=== PATIENT | male | born 1960 | race African-American/Black ===

== ENCOUNTER 2018-11-30 08:38 | Emergency (ER) | payer SELFPAY ==
--- NOTE | 2018-11-30 09:15 | EDM.PDOC ---
ED HPI GENERAL MEDICAL PROBLEM - General Chief Complaint: Upper Extremity Injury/Pain Stated Complaint: KNEE AND WRIST PAIN Time Seen by Provider: 11/30/18 09:08 Source of Information: Reports: Patient History Limitations: Reports: No Limitations - History of Present Illness INITIAL COMMENTS - FREE TEXT/NARRATIVE: History of present illness: []Patient's had 6 days of right wrist pain and left knee pain. He was diagnosed with osteoarthritis recently. 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 He wakes up in the middle the night with numbness to his small finger. Patient was recently diagnosed with arthritis and states that he works at night and by morning time he can barely walk up the stairs due to left knee pain Review of systems: As per history of present illness and below otherwise all systems reviewed and negative. Past medical history: As per history of present illness and as reviewed below otherwise noncontributory. Surgical history: As per history of present illness and as reviewed below otherwise noncontributory. Social history: No reported history of drug or alcohol abuse. Family history: As per history of present illness and as reviewed below otherwise noncontributory. Physical exam: General: Well developed, well nourished in NAD HEENT: Atraumatic, normocephalic, pupils reactive, negative for conjunctival pallor or scleral icterus, mucous membranes moist, throat clear, neck supple, nontender, trachea midline. Lungs: Clear to auscultation, breath sounds equal bilaterally, chest nontender. Heart: S1S2, regular, negative for clicks, rubs, or JVD. Abdomen: NABS, Soft, nondistended, nontender. Negative for masses or hepatosplenomegaly. Negative for costovertebral tenderness. Pelvis: Stable nontender. Genitourinary: Deferred. Rectal: Deferred. Extremities: Atraumatic, right wrist without any swelling or edema, full range of motion there is an ulnar protuberance of bone that is nontender and not limiting motion. negative for cords or calf pain. Neurovascular unremarkable. Neuro: Awake, alert, oriented. Cranial nerves II through XII unremarkable. Cerebellum unremarkable. Motor and sensory unremarkable throughout. Exam nonfocal. Skin:warm and dry Diagnostics: None Therapeutics: Cock-up splint ED Course: Stable Impression: Right wrist pain; left knee pain from osteoarthritis Prescriptions: Diclofenac Plan: Wear splint at night, follow-up with primary care. Definitive disposition and diagnosis as appropriate pending reevaluation and review of above. Right wrist Pain Score (Numeric/FACES): 5 Left knee Pain Score (Numeric/FACES): 7 - Related Data Allergies Allergy/AdvReac Type Severity Reaction Status Date / Time No Known Allergies Allergy Verified 12/11/14 15:32 Home Meds: Home Meds Diclofenac Sodium [Voltaren] 75 mg PO BIDMEALS PRN #20 tab.cr 11/30/18 [Rx] Past Medical History Musculoskeletal History: Reports: Osteoporosis - Past Surgical History Other GI Surgeries/Procedures: abscess on neck Social & Family History - Family History Family Medical History: Noncontributory - Tobacco Use Smoking Status *Q: Current Every Day Smoker Years of Tobacco use: 10 Packs/Tins Daily: 0.2 - Caffeine Use Caffeine Use: Reports: None - Recreational Drug Use Recreational Drug Use: No Review of Systems - Review of Systems Review Of Systems: ROS reveals no pertinent complaints other than HPI. ED EXAM, GENERAL - Physical Exam Exam: See Below Course - Vital Signs Last Recorded V/S: Last Vital Signs Temp 96.9 F 11/30/18 08:52 Pulse 101 H 11/30/18 08:52 Resp 16 11/30/18 08:52 BP 132/88 11/30/18 08:52 Pulse Ox 97 11/30/18 08:52 - Orders/Labs/Meds Orders: Active Orders 24 hr Category Date Time Status Splinting [RC] ASDIRECTED Care 11/30/18 09:09 Ordered Departure - Departure Time of Disposition: 09:14 Disposition: Home, Self-Care 01 Condition: Good Clinical Impression: Pain in joint of right wrist Osteoarthritis Qualifiers: Osteoarthritis location: knee Osteoarthritis type: primary Laterality: left Qualified Code(s): M17.12 - Unilateral primary osteoarthritis, left knee - Discharge Information *PRESCRIPTION DRUG MONITORING PROGRAM REVIEWED*: No *COPY OF PRESCRIPTION DRUG MONITORING REPORT IN PATIENT MEENA: No Prescriptions: Diclofenac Sodium [Voltaren] 75 mg PO BIDMEALS PRN #20 tab.cr PRN Reason: Pain Referrals: PCP,Unknown [Primary Care Provider] - Additional Instructions: The following information is given to patients seen in the emergency department who are being discharged to home. This information is to outline your options for follow-up care. We provide all patients seen in our emergency department with a follow-up referral. The need for follow-up, as well as the timing and circumstances, are variable depending upon the specifics of your emergency department visit. If you don't have a primary care physician on staff, we will provide you with a referral. We always advise you to contact your personal physician following an emergency department visit to inform them of the circumstance of the visit and for follow-up with them and/or the need for any referrals to a consulting specialist. The emergency department will also refer you to a specialist when appropriate. This referral assures that you have the opportunity for follow-up care with a specialist. All of these measure are taken in an effort to provide you with optimal care, which includes your follow-up. Under all circumstances we always encourage you to contact your private physician who remains a resource for coordinating your care. When calling for follow-up care, please make the office aware that this follow-up is from your recent emergency room visit. If for any reason you are refused follow-up, please contact the [facility] Emergency Department at and asked to speak to the emergency department charge nurse. Take meds as directed, follow up with your primary care physician, return to ER if symptoms worsen or change. Take high-dose fish oil [id number] mg of omega 3 daily Wear wrist splint at night and while working [facility] [address] [place] [id number] - My Orders Last 24 Hours: My Active Orders 11/30/18 09:09 Splinting [RC] ASDIRECTED - Assessment/Plan Last 24 Hours: My Active Orders 11/30/18 09:09 Splinting [RC] ASDIRECTED
[2018-11-30 09:32] VITALS: BP 128/76
== END 2018-11-30 09:32 | disposition home or self-care (01) ==
LOC: MW.ED 08:38
DX: M17.12 Unilateral primary osteoarthritis, left knee (principal); M25.531 Pain in right wrist; F17.210 Nicotine dependence, cigarettes, uncomplicated
CPT/HCPCS: 99283

== ENCOUNTER 2019-01-03 07:46 | Emergency (ER) | payer SELFPAY ==
[2019-01-03 08:02] VITALS: BP 138/92
--- NOTE | 2019-01-03 08:02 | EDM.PDOC ---
ED HPI GENERAL MEDICAL PROBLEM - General Chief Complaint: Upper Extremity Injury/Pain Stated Complaint: PAIN IN LT WRIST Time Seen by Provider: 01/03/19 07:54 - History of Present Illness INITIAL COMMENTS - FREE TEXT/NARRATIVE: HISTORY AND PHYSICAL: History of present illness: Patient 58-year-old black male presents with a concern of left wrist pain he states this occurred when he was doing some lifting with a bucket recently. He gets him upset with his right wrist prior he denies direct trauma denies other concern Review of systems: As per history of present illness and below otherwise all systems reviewed and negative. Past medical history: As per history of present illness and as reviewed below otherwise noncontributory. Surgical history: As per history of present illness and as reviewed below otherwise noncontributory. Social history: No reported history of drug or alcohol abuse. Family history: As per history of present illness and as reviewed below otherwise noncontributory. Physical exam: HEENT: Atraumatic, normocephalic, pupils reactive, negative for conjunctival pallor or scleral icterus, mucous membranes moist, throat clear, neck supple, nontender, trachea midline. Lungs: Clear to auscultation, breath sounds equal bilaterally, chest nontender. Heart: S1S2, regular, negative for clicks, rubs, or JVD. Abdomen: Soft, nondistended, nontender. Negative for masses or hepatosplenomegaly. Negative for costovertebral tenderness. Pelvis: Stable nontender. Genitourinary: Deferred. Rectal: Deferred. Extremities: Left wrist is limited range of motion secondary pain is no erythema no warmth patient point tenderness CMS in neurovascular exam is unremarkable. Neuro: Awake, alert, oriented. Cranial nerves II through XII unremarkable. Cerebellum unremarkable. Motor and sensory unremarkable throughout. Exam nonfocal. Diagnostics: X-ray left wrist Therapeutics: Sling Impression: #1 left wrist pain etiology to be determined Definitive disposition and diagnosis as appropriate pending reevaluation and review of above. - Related Data Allergies Allergy/AdvReac Type Severity Reaction Status Date / Time No Known Allergies Allergy Verified 12/11/14 15:32 Home Meds: Home Meds Diclofenac Sodium [Voltaren] 75 mg PO BIDMEALS PRN #20 tab.cr 11/30/18 [Rx] Past Medical History Musculoskeletal History: Reports: Osteoporosis - Past Surgical History Other GI Surgeries/Procedures: abscess on neck Social & Family History - Family History Family Medical History: Noncontributory - Caffeine Use Caffeine Use: Reports: None Review of Systems - Review of Systems Review Of Systems: ROS reveals no pertinent complaints other than HPI. ED EXAM, GENERAL - Physical Exam Exam: See Below (See dictation) Course - Orders/Labs/Meds Orders: Active Orders 24 hr Category Date Time Status Wrist Comp Min 3V Lt [CR] Stat Exams 01/03/19 07:57 Ordered Departure - Departure Time of Disposition: 08:00 Disposition: Home, Self-Care 01 Condition: Good Clinical Impression: Wrist pain - Discharge Information Referrals: PCP,None [Primary Care Provider] - Additional Instructions: The following information is given to patients seen in the emergency department who are being discharged to home. This information is to outline your options for follow-up care. We provide all patients seen in our emergency department with a follow-up referral. The need for follow-up, as well as the timing and circumstances, are variable depending upon the specifics of your emergency department visit. If you don't have a primary care physician on staff, we will provide you with a referral. We always advise you to contact your personal physician following an emergency department visit to inform them of the circumstance of the visit and for follow-up with them and/or the need for any referrals to a consulting specialist. The emergency department will also refer you to a specialist when appropriate. This referral assures that you have the opportunity for followup care with a specialist. All of these measure are taken in an effort to provide you with optimal care, which includes your followup. Under all circumstances we always encourage you to contact your private physician who remains a resource for coordinating your care. When calling for followup care, please make the office aware that this follow-up is from your recent emergency room visit. If for any reason you are refused follow-up, please contact the [facility] emergency department at and asked to speak to the emergency department charge nurse. ANDRAE [facility] - Orthopedic Clinic Professional Building [address] [place] [address], [address] [place] [address] Slsamuel as directed Motrin/Tylenol as directed follow-up orthopedic clinic above call to schedule routine appointment and return as needed as discussed - My Orders Last 24 Hours: My Active Orders 01/03/19 07:57 Wrist Comp Min 3V Lt [CR] Stat - Assessment/Plan Last 24 Hours: My Active Orders 01/03/19 07:57 Wrist Comp Min 3V Lt [CR] Stat
--- NOTE | 2019-01-03 09:01 | CR ---
EXAMINATION: Left wrist HISTORY: Pain COMPARISON: 11/20/2011 TECHNIQUE: 3 views FINDINGS: There is widening of the scapholunate interval with volar tilting of the lunate. Severe joint space narrowing within the radiocarpal joint medially and advanced ossific changes at the first CMC joint. There is no fracture or acute osseous head and body. Bone mineralization is otherwise normal. IMPRESSION: 1. No acute osseous abdomen body. 2. Advanced facet arthritic changes at the first CMC joint. 3. Widening of the scapholunate interval with a VISI deformity.
== END 2019-01-03 09:05 | disposition home or self-care (01) ==
LOC: MW.ED 07:46
DX: M25.532 Pain in left wrist (principal)
CPT/HCPCS: 73110-26-LT; 73110-LT; 99283; 99283-25

== ENCOUNTER 2020-06-18 13:03 | Emergency (ER) | payer OTHER ==
[2020-06-18 13:33] VITALS: BP 128/68; PULSE 101
[2020-06-18] MEDS ORDERED: Sodium Chloride 0.9% 10 ML Syringe FLUSH PRN (13:59)
[2020-06-18] MEDS ORDERED: Sodium Chloride 0.9% 2.5 ML Syringe FLUSH PRN (13:59)
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
== END 2020-06-18 14:08 | disposition left against medical advice (07) ==
LOC: MW.ED 13:03
DX: M79.652 Pain in left thigh (principal); R06.00 Dyspnea, unspecified; F17.210 Nicotine dependence, cigarettes, uncomplicated; Z86.711 Personal history of pulmonary embolism
CPT/HCPCS: 99282; 99284-25

== ENCOUNTER 2020-12-05 10:50 | Day surgery (SDC) | payer OTHER, MEDICAID ==
[~2020-12-05 10:50] MED LIST: Acetaminophen 1,000 MG in Premix Bag 1 BAG IV ONE; Lactated Ringers 1,000 ML IV SCH; Pregabalin 75 MG Cap PO SCH; ceFAZolin 2 GM in Premix Bag 1 BAG IV ONE
--- NOTE | 2020-12-05 11:37 | PCM.PREANE ---
Preanesthetic Assessment - Anesthesia/Transfusion/Family Hx Anesthesia History: Prior Anesthesia Without Reaction Family History of Anesthesia Reaction: No Transfusion History: No Prior Transfusion(s) - Review of Systems General: No Symptoms Pulmonary: No Symptoms Cardiovascular: No Symptoms Gastrointestinal: No Symptoms Neurological: No Symptoms Other: Reports: None - Physical Assessment NPO Status Date: 12/05/20 NPO Status Time: 00:01 Vital Signs: Last Vital Signs Temp 97.9 F 12/05/20 11:00 Pulse 103 H 12/05/20 11:00 Resp 15 12/05/20 11:00 BP 113/74 12/05/20 11:00 Pulse Ox 99 12/05/20 11:00 Height: 6 ft 4 in Weight: 175 lb ASA Class: 2 Mental Status: Alert & Oriented x3 Airway Class: Mallampati = 2 Dentition: Reports: Normal Dentition, Dentures ROM/Head Extension: Full Lungs: Clear to Auscultation, Normal Respiratory Effort Cardiovascular: Regular Rate, Regular Rhythm - Allergies Allergies/Adverse Reactions: Allergies Allergy/AdvReac Type Severity Reaction Status Date / Time No Known Allergies Allergy Verified 11/29/20 11:44 - Anesthesia Plan Pre-Op Medication Ordered: None - Acknowledgements Anesthesia Type Planned: General Anesthesia Pt an Appropriate Candidate for the Planned Anesthesia: Yes Alternatives and Risks of Anesthesia Discussed w Pt/Guardian: Yes Pt/Guardian Understands and Agrees with Anesthesia Plan: Yes Additional Comments: npo after mn etoh hx abuse last use apr 2020 - rebab aug 2020 tob down to 2 cigarettes a week dvt and pe 2000 on coumadin for 1 year no known clotting disorder anxiety depression etoh withdrawl seizure X1 in past not on any anti seizure meds bmi 21 par no questions PreAnesthesia Questionnaire - Past Health History Medical/Surgical History: Denies Medical/Surgical History HEENT History: Reports: Other (See Below) Other HEENT History: wears glasses, has upper denture Cardiovascular History: Reports: Blood Clots/VTE/DVT, Hypertension Other Cardiovascular History: blood clot in leg travelled to lungs- took anticoagulants for a year- no known cause Respiratory History: Reports: COPD, PE Other Respiratory History: uses inhaler a "couple times a week" Gastrointestinal History: Reports: None Genitourinary History: Reports: None Musculoskeletal History: Reports: Arthritis, Back Pain, Chronic, Other (See Below) Other Musculoskeletal History: ganglion cyst right wrist Neurological History: Reports: Concussion, Neuropathy, Peripheral, Seizure Other Neuro History: had a seizure over a year ago from alcohol withdrawl Psychiatric History: Reports: Addiction, Anxiety Endocrine/Metabolic History: Reports: None Hematologic History: Reports: None Immunologic History: Reports: None Oncologic (Cancer) History: Reports: None Dermatologic History: Reports: None - Infectious Disease History Infectious Disease History: Reports: None - Past Surgical History Head Surgeries/Procedures: Reports: None HEENT Surgical History: Reports: None Cardiovascular Surgical History: Reports: None Respiratory Surgical History: Reports: None GI Surgical History: Reports: Colonoscopy, EGD, Hernia, Inguinal Male Surgical History: Reports: None Endocrine Surgical History: Reports: None Neurological Surgical History: Reports: None Musculoskeletal Surgical History: Reports: None Oncologic Surgical History: Reports: None Dermatological Surgical History: Reports: None - SUBSTANCE USE Tobacco Use Status *Q: Light Tobacco User Tobacco Use Within Last Twelve Months: Cigarettes Recreational Drug Use History: No - HOME MEDS Home Medications: Home Meds Albuterol Sulfate [Albuterol Sulfate HFA] 1 puff INH ASDIRECTED PRN 11/29/20 [History] Gabapentin [Neurontin] 300 mg PO TID 11/29/20 [History] Meloxicam 7.5 mg PO DAILY 11/29/20 [History] Metoprolol Succinate 25 mg PO QAM 11/29/20 [History] Sertraline HCl 50 mg PO DAILY 11/29/20 [History] - CURRENT (IN HOUSE) MEDS Current Meds: Current Medications Lactated Ringer's (Ringers, Lactated) 1,000 mls @ 125 mls/hr IV ASDIRECTED [facility] Last Admin: 12/05/20 11:28 Dose: 125 mls/hr Documented by: Pregabalin (Pregabalin 75 Mg Cap) 150 mg PO DAILY [facility] Last Admin: 12/05/20 11:30 Dose: 150 mg Documented by: Discontinued Medications Cefazolin Sodium/Dextrose 2 gm (/ Premix) 50 mls @ 100 mls/hr IV ONETIME ONE Stop: 12/03/20 11:09 Acetaminophen 1,000 mg/ Premix 100 mls @ 400 mls/hr IV NOW ONE Stop: 12/04/20 05:14
[2020-12-05] MEDS ORDERED: Propofol 200 MG/20 ML SDV ONE (11:55)
[2020-12-05] MEDS ORDERED: Midazolam 1 MG/ML 2 ML SDV ONE (11:55)
[2020-12-05] MEDS ORDERED: Sodium Chloride 0.9% 20 ML ONE (11:56)
[2020-12-05] MEDS ORDERED: Heparin Sodium 5,000 Units/ML Vial ONE (11:56)
[2020-12-05] MEDS ORDERED: fentaNYL 250 MCG/5 ML SDV ONE (11:56)
[2020-12-05] MEDS ORDERED: ceFAZolin 1 GM Vial ONE (11:56)
[2020-12-05] MEDS ORDERED: Ondansetron 4 MG/2 ML SDV ONE (11:57)
[2020-12-05] MEDS ORDERED: Dexamethasone 4 MG/ML 5 ML MDV ONE (11:57)
[2020-12-05] MEDS ORDERED: Lidocaine 2% 5 ML SDV ONE (11:57)
[2020-12-05] MEDS ORDERED: Rocuronium Bromide 50 MG/5 ML Syringe ONE (11:59)
[2020-12-05] MEDS ORDERED: Sugammadex Sodium 200 MG/2 ML VIAL ONE (12:52)
[2020-12-05] MEDS ORDERED: Ketorolac 30 MG/ML SDV ONE (12:52)
[2020-12-05] MEDS ORDERED: Acetaminophen 1,000 MG in Premix Bag 1 BAG IV ONE (13:00)
--- NOTE | 2020-12-05 13:31 | PCM.OPNOTE ---
- General Post-Op/Procedure Note Date of Surgery/Procedure: 12/05/20 Operative Procedure(s): Laparoscopic right inguinal hernia repair Findings: Right indirect inguinal hernia dictation number [id number] Pre Op Diagnosis: Right inguinal hernia Post-Op Diagnosis: Right indirect inguinal hernia Anesthesia Technique: General ET Tube Primary Surgeon: Mark Foote Pathology: none EBL in mLs: 5 Complications: None Condition: Good
--- NOTE | 2020-12-05 14:42 | PCM.POSTAN ---
POST ANESTHESIA ASSESSMENT - MENTAL STATUS Mental Status: Alert, Oriented - VITAL SIGNS Vital Signs: Last Vital Signs Temp 97.2 F 12/05/20 13:29 Pulse 84 12/05/20 14:29 Resp 12 12/05/20 14:29 BP 131/87 12/05/20 14:29 Pulse Ox 100 12/05/20 14:29 - RESPIRATORY Respiratory Status: Respiratory Rate WNL, Airway Patent, O2 Saturation Stable - CARDIOVASCULAR CV Status: Pulse Rate WNL, Blood Pressure Stable - GASTROINTESTINAL GI Status: No Symptoms - PAIN Pain Score: 0 - POST OP HYDRATION Hydration Status: Adequate & Stable
--- NOTE | 2020-12-05 15:26 | PCM48HPAN ---
Post Anesthesia Note - EVALUATION WITHIN 48HRS OF ANESTHETIC Vital Signs in Normal Range: Yes Patient Participated in Evaluation: Yes Respiratory Function Stable: Yes Airway Patent: Yes Cardiovascular Function Stable: Yes Hydration Status Stable: Yes Pain Control Satisfactory: Yes Nausea and Vomiting Control Satisfactory: Yes Mental Status Recovered: Yes Vital Signs: Last Vital Signs Temp 97.5 F 12/05/20 14:30 Pulse 78 12/05/20 14:45 Resp 15 12/05/20 15:00 BP 129/64 12/05/20 15:00 Pulse Ox 96 12/05/20 15:00
[2020-12-05 15:28] VITALS: BP 135/89; PULSE 71
--- NOTE | 2020-12-06 09:16 | OR ---
SURGEON: SAMMI POWERS MD DATE OF PROCEDURE: 12/05/2020 PREOPERATIVE DIAGNOSIS: Right inguinal hernia. POSTOPERATIVE DIAGNOSIS: Right indirect inguinal hernia. PROCEDURE PERFORMED: Laparoscopic right inguinal hernia repair with mesh. PRIMARY SURGEON: Sammi Powers MD COMPLICATIONS: None. ESTIMATED BLOOD LOSS: 5 mL. REASON FOR PROCEDURE: The patient is a pleasant 60-year-old gentleman who has a right inguinal hernia, noticed a bulge after carrying some crates at work. The patient also has a history of chronic back pain, hip and knee issues. The patient did have a left inguinal hernia repair in the past. Examination under ultrasound the left inguinal hernia. I did go over with the patient risks, goals, and alternatives to the procedure. Risks include, but are not limited to bleeding, infection, mesh infection, chronic pain, nerve entrapment, recurrence, injury to underlying structures such as spermatic cord leading to testicular damage, need to convert to open, and this may not solve all of his problems as he does have a history of hip, knee and back problems, and already has chronic pain in his groin and legs. The patient understands. All the questions were answered. OPERATIVE NARRATIVE: The patient was brought back to the OR. He was prepped and draped in usual sterile fashion. SCDs were placed. Martinez catheter was placed. Preoperative antibiotics were given. He did get some subcu heparin because of history of blood clots in the past and anesthesia was provided by the anesthesia team. Time-out was performed. An infraumbilical incision was made. This was made down to the external rectus fascia. Now, approximately 1 cm incision was made in the underlying rectus muscles, atraumatically split down to the posterior rectus sheath. Now, a balloon dissecting system was placed into the level of the pubic symphysis and then inflated under direct visualization. The balloon dissecting system was removed and trocar was placed and insufflation was began and preperitoneum pneumo was established. Now, two 5 mm trocars were placed in the midline under direct visualization. There did not appear to be a direct inguinal hernia. The lateral wall was then cleared up. No cord lipoma was seen. Now, the patient did have an indirect inguinal hernia. This was carefully dissected off the spermatic cord taking care not to injure the vas deferens or its blood supply. Attention was made to push back the peritoneal reflection to have a good landing zone for the mesh. Now, a large 3DMax MID mesh was placed. It was placed and laid nice and flat and in good position. It was secured with absorbable tacks placed to the periosteum of Tomas's ligament once laterally. It again laid nice and flat. There was good hemostasis. The hernia sac was placed on the side of the mesh. The abdomen was then deinsufflated. It was then reinsufflated. Again, nothing went underneath the mesh. The mesh was still underneath peritoneal reflection. Now, the pneumoperitoneum was again released and the 5 mm trocars removed along with the infraumbilical trocar. The external rectus fascia was closed with a [id number] 0 Vicryl. All the trocar sites were injected with the remaining of the local and closed with 4-0 Monocryl and Dermabond. At the end of the case, both testicles were in the scrotum. The patient was transferred to recovery room in stable condition. Sponge and needle counts were correct. RUSSEL / DHIRAJ /[id number]
== END 2020-12-05 15:55 | disposition home or self-care (01) ==
LOC: MW.SDS 10:50
PROVIDERS: ATTEND Surgery
DX: K40.90 Unilateral inguinal hernia, without obstruction or gangrene, not specified as recurrent (principal); F17.210 Nicotine dependence, cigarettes, uncomplicated; I10 Essential (primary) hypertension; Z79.899 Other long term (current) drug therapy; Z86.711 Personal history of pulmonary embolism
CPT/HCPCS: 49650; A9270; C1781; J0690; J1100; J1644; J1885; J2250; J2405; J2704; J3010; J3490; J7120

== ENCOUNTER 2021-07-20 04:23 | Emergency (ER) | payer MEDICAID, OTHER ==
[2021-07-20] MEDS ORDERED: Ibuprofen 600 MG Tab PO ONE (05:11)
--- NOTE | 2021-07-20 05:11 | EDM.PDOC ---
ED HPI GENERAL MEDICAL PROBLEM - General Chief Complaint: Exposure to Heat or Cold Stated Complaint: POSSIBLE FROSTBITE TO BOTH HANDS Time Seen by Provider: 07/20/21 05:07 - History of Present Illness INITIAL COMMENTS - FREE TEXT/NARRATIVE: HISTORY AND PHYSICAL: History of present illness: This is a 60-year-old gentleman who presents ER today secondary to concerns of injury/frostbite to the tips of his fingers that occurred prior to arrival. Patient reports he was outside for approximately 20 minutes when the injury occurred. Patient denies any recent fevers, shakes, chills, nausea, vomiting, diarrhea. Patient has any drainage or discharge from the areas. Patient reports feels like tingling and pain to the tips of his fingers. Review of systems: As per history of present illness and below otherwise all systems reviewed and negative. Past medical history: As per history of present illness and as reviewed below otherwise noncontributory. Surgical history: As per history of present illness and as reviewed below otherwise noncontributory. Social history: No reported history of drug abuse. Family history: As per history of present illness and as reviewed below otherwise noncontributory. Physical exam: This patient was seen and evaluated during the 2019 SARS-CoV-2 novel coronavirus pandemic period. Community viral transmission is ongoing at time of this encounter and the emergency department is operating under pandemic response procedures. Constitutional: Patient is oriented to person, place, and time. Appears well- developed and well-nourished. No distress. HEENT: Moist mucous membranes Head: Normocephalic and atraumatic Eyes: Right eye exhibits no discharge. Left eye exhibits no discharge. No scleral icterus Neck: Normal range of motion. No tracheal deviation present. Cardiovascular: Normal rate and regular rhythm. Pulmonary: Effort normal, no respiratory distress. Abdominal: No distention Musculoskeletal: Normal range of motion Neurologic: Alert and oriented to person, place and time. Skin: [place], warm and dry. Psychiatric: Normal mood and affect. Behavior is normal. Judgment and thought content normal. Nursing note and vital signs have been reviewed Patient's ER physical exam is significant for fingertips that are warm to touch, no evidence of erythema, good capillary refill, no drainage or blistering. Diagnostics: [] Therapeutics: [] Assessment and plan: 60-year-old gentleman who presents ER today with signs and symptoms consistent with frostnip/early frostbite. At this time, there is no acute intervention required. I have discussed with the patient ibuprofen as needed for pain. Patient will follow up with his doctor as needed week for reevaluation. Reassessment at the time of disposition demonstrates that the patient is in no acute distress. The patient has remained stable throughout the entire ED visit and is without objective evidence for acute process requiring urgent intervention or hospitalization. The patient is stable for discharge, counseling is provided as documented above, discussed symptomatic treatment and specific conditions for return. I have spoken with the patient/caregiver and discussed todays findings, in addition to providing specific details for the plan of care. Questions are answered and there is agreement with the plan. Definitive disposition and diagnosis as appropriate pending reevaluation and review of above. Bilaterl hands Pain Score (Numeric/FACES): 4 - Related Data Allergies Allergy/AdvReac Type Severity Reaction Status Date / Time No Known Allergies Allergy Verified 11/29/20 11:44 Home Meds: Home Meds . [No Known Home Meds] 07/20/21 [History] Past Medical History - Past Health History Medical/Surgical History: Denies Medical/Surgical History HEENT History: Reports: Other (See Below) Other HEENT History: wears glasses, has upper denture Cardiovascular History: Reports: Blood Clots/VTE/DVT, Hypertension Other Cardiovascular History: blood clot in leg travelled to lungs- took anticoagulants for a year- no known cause Respiratory History: Reports: COPD, PE Other Respiratory History: uses inhaler a "couple times a week" Gastrointestinal History: Reports: None Genitourinary History: Reports: None Musculoskeletal History: Reports: Arthritis, Back Pain, Chronic, Other (See Below) Other Musculoskeletal History: ganglion cyst right wrist Neurological History: Reports: Concussion, Neuropathy, Peripheral, Seizure Other Neuro History: had a seizure over a year ago from alcohol withdrawl Psychiatric History: Reports: Addiction, Anxiety Endocrine/Metabolic History: Reports: None Hematologic History: Reports: None Immunologic History: Reports: None Oncologic (Cancer) History: Reports: None Dermatologic History: Reports: None - Infectious Disease History Infectious Disease History: Reports: None - Past Surgical History Head Surgeries/Procedures: Reports: None HEENT Surgical History: Reports: None Cardiovascular Surgical History: Reports: None Respiratory Surgical History: Reports: None GI Surgical History: Reports: Colonoscopy, EGD, Hernia, Inguinal Other GI Surgeries/Procedures: abscess on neck Male Surgical History: Reports: None Endocrine Surgical History: Reports: None Neurological Surgical History: Reports: None Musculoskeletal Surgical History: Reports: None Oncologic Surgical History: Reports: None Dermatological Surgical History: Reports: None Social & Family History - Family History Family Medical History: No Pertinent Family History - Tobacco Use Tobacco Use Status *Q: Current Every Day Tobacco User Years of Tobacco use: 15 Packs/Tins Daily: 0.1 - Caffeine Use Caffeine Use: Reports: None - Recreational Drug Use Recreational Drug Use: No ED ROS GENERAL - Review of Systems Review Of Systems: See Below ED EXAM, GENERAL - Physical Exam Exam: See Below Course - Vital Signs Last Recorded V/S: Last Vital Signs Temp 96.9 F 07/20/21 04:29 Pulse 106 H 07/20/21 04:29 Resp 18 07/20/21 04:29 BP 107/65 07/20/21 04:29 Pulse Ox 100 07/20/21 04:29 Departure - Departure Time of Disposition: 05:10 Disposition: Home, Self-Care 01 Condition: Good Clinical Impression: Frostnip - Discharge Information Instructions: Frostbite, [id number] Referrals: Jamie Gamez MD [Primary Care Provider] - Additional Instructions: You were seen and evaluated in ER today secondary to mild frostbite to your fingertip. At this time, no intervention is required other than pain management. Please follow-up with your doctor in 1 week for reevaluation. The following information is given to patients seen in the emergency department who are being discharged to home. This information is to outline your options for follow-up care. We provide all patients seen in our emergency department with a follow-up referral. The need for follow-up, as well as the timing and circumstances, are variable depending upon the specifics of your emergency department visit. If you don't have a primary care physician on staff, we will provide you with a referral. We always advise you to contact your personal physician following an emergency department visit to inform them of the circumstance of the visit and for follow-up with them and/or the need for any referrals to a consulting specialist. The emergency department will also refer you to a specialist when appropriate. This referral assures that you have the opportunity for follow-up care with a specialist. All of these measure are taken in an effort to provide you with optimal care, which includes your follow-up. Under all circumstances we always encourage you to contact your private physician who remains a resource for coordinating your care. When calling for follow-up care, please make the office aware that this follow-up is from your recent emergency room visit. If for any reason you are refused follow-up, please contact the [facility] Emergency Department at and asked to speak to the emergency department charge nurse. [facility] - Primary Care [address] [place] [id number] [address] Sepsis Event Note (ED) - Evaluation Sepsis Screening Result: No Definite Risk - Focused Exam Vital Signs: Vital Signs Temp Pulse Resp BP Pulse Ox 07/20/21 04:29 96.9 F 106 H 18 107/65 100
[2021-07-20 05:35] VITALS: BP 109/67; PULSE 103
== END 2021-07-20 05:35 | disposition home or self-care (01) ==
LOC: MW.ED 04:23
DX: T33.532A Superficial frostbite of left finger(s), initial encounter (principal); T33.531A Superficial frostbite of right finger(s), initial encounter; X31.XXXA Exposure to excessive natural cold, initial encounter
CPT/HCPCS: 99283; A9270

== ENCOUNTER 2023-01-08 08:38 | Emergency (ER) | payer MEDICAID, OTHER ==
[2023-01-08] MEDS ORDERED: Sodium Chloride 0.9% 2.5 ML Syringe FLUSH PRN (08:46)
[2023-01-08] MEDS ORDERED: Lactated Ringers 1,000 ML IV ONE (08:46)
[2023-01-08] MEDS ORDERED: Sodium Chloride 0.9% 10 ML Syringe FLUSH PRN (08:46)
[2023-01-08] MEDS ORDERED: Ondansetron 4 MG/2 ML SDV IVPUSH ONE (08:49)
[2023-01-08] MEDS ORDERED: Lidocaine 4% 1 each Patch TOP STA (08:49)
[2023-01-08 09:01] LABS: BASOPHILS PERCENT AUTO 0.2 % (0.0-1.5); EOSINOPHILS PERCENT AUTO 0.2 % (0.0-7.0); HEMATOCRIT 37.6 % (38.0-50.0); HEMOGLOBIN 12.9 g/dL (13.0-17.0); LYMPHOCYTES ABSOLUTE AUTO 4.5 K/uL (0.6-2.4); LYMPHOCYTES PERCENT AUTO 52.6 % (16.0-40.0); MEAN CORPUSCULAR HEMOGLOBIN 33.5 pg (27.0-32.0); MEAN CORPUSCULAR HGB CONC 34.3 g/dL (31.0-37.0); MEAN CORPUSCULAR VOLUME 97.7 fL (80.0-98.0); MONOCYTES ABSOLUTE AUTO 0.5 K/uL (0.0-0.8); MONOCYTES PERCENT AUTO 5.7 % (0.0-15.0); NEUTROPHILS ABSOLUTE AUTO 3.5 K/uL (1.4-5.7); NEUTROPHILS PERCENT AUTO 41.3 % (48.0-80.0); NRBC ABSOLUTE 0 K/uL; PLATELET COUNT,PLT 148 K/uL (150-400); RED BLOOD CELL COUNT 3.85 M/uL (4.50-5.90); WHITE BLOOD CELL COUNT,WBC 8.54 K/uL (4.0-11.0)
[2023-01-08 09:06] LABS: BASE EXCESS VENOUS -3.7 (-2.0-3.0); INR < 0.93 (0.86-1.11); PH,VENOUS 7.37 (7.31-7.41); PTT,PARTIAL THROMBOPLSTIN TIME 22.8 SEC (23.9-30.7)
[2023-01-08 09:15] LABS: A/G RATIO 0.8 (0.9-1.6); ALBUMIN 3.2 g/dL (3.4-5.0); BILIRUBIN TOTAL 0.7 mg/dL (0.2-1.0); CALCIUM 8.6 mg/dL (8.5-10.1); CREATININE 0.9 mg/dL (0.8-1.3); EST CRCL DRUG DOSING (CG) 88.48 mL/min; MAGNESIUM 1.8 mg/dL (1.8-2.4); POTASSIUM,K 3.9 mmol/L (3.5-5.1); PROTEIN TOTAL,TP 7.4 g/dL (6.4-8.2)
[2023-01-08 09:18] LABS: LACTIC ACID 4.6 mmol/L (0.4-2.0)
[2023-01-08] MEDS ORDERED: Sodium Chloride 0.9% 1,000 ML IV ONE (09:34)
[2023-01-08 10:58] LABS: APPEARANCE,URINE CLEAR; BILIRUBIN,URINE NEGATIVE (NEGATIVE); COLOR,URINE YELLOW; GLUCOSE,URINE NEGATIVE (NEGATIVE); KETONES,URINE 40 mg/dL (NEGATIVE); LEUKOCYTE ESTERASE,URINE NEGATIVE (NEGATIVE); NITRITE,URINE NEGATIVE (NEGATIVE); OCCULT BLOOD,URINE NEGATIVE (NEGATIVE); PH,URINE 5.5 (5.0-8.0); PROTEIN,URINE NEGATIVE (NEGATIVE)
[2023-01-08] MEDS ORDERED: Iopamidol 755 Mg/ML 100 ML Bottle IVPUSH ONE (12:37)
[2023-01-08] MEDS ORDERED: Acetaminophen/HYDROcodone 325-5 MG Tab PO ONE (12:59)
[2023-01-08 15:12] VITALS: BP 131/78; PULSE 106
== END 2023-01-08 15:30 | disposition home or self-care (01) ==
LOC: MW.ED 08:38
DX: S22.42XA Multiple fractures of ribs, left side, initial encounter for closed fracture (principal); R55 Syncope and collapse; J44.9 Chronic obstructive pulmonary disease, unspecified
CPT/HCPCS: 36415; 71275; 74177; 80053; 81003; 82550; 82803; 83605; 83690; 83735; 84484; 85025; 85610; 85730; 93005; 96361; 96374; 99285; A9270; J2405; J3490; J7030; J7120; Q9967; 93010; 99284

== ENCOUNTER 2023-02-21 05:37 | Emergency (ER) | payer MEDICAID ==
[2023-02-21] MEDS ORDERED: Ondansetron 4 MG/2 ML SDV IVPUSH ONE (05:40)
[2023-02-21] MEDS ORDERED: Morphine 4 MG/ML Syringe IVPUSH ONE (05:40)
[2023-02-21] MEDS ORDERED: fentaNYL 50 MCG/ML SDV ONE (06:03)
[2023-02-21] MEDS ORDERED: methylPREDNISolone Sodium Succinate 125 MG/2 ML SDV IVPUSH ONE (06:10)
[2023-02-21] MEDS ORDERED: Albuterol/Ipratropium 3.0-0.5 MG/3 ML Neb Soln NEB ONE (06:10)
[2023-02-21] MEDS ORDERED: Enoxaparin 100 MG/1 ML Syringe SUBCUT ONE (06:16)
[2023-02-21 06:17] VITALS: BP 128/78; PULSE 132
[2023-02-21] MEDS ORDERED: fentaNYL 50 MCG/ML SDV IVPUSH STA (06:24)
[2023-02-21 06:26] LABS: HEMATOCRIT 48.1 % (38.0-50.0); HEMOGLOBIN 14.9 g/dL (13.0-17.0); MEAN CORPUSCULAR VOLUME 109.8 fL (80.0-98.0); NRBC ABSOLUTE 0 K/uL; NRBC PERCENT 0.5 /100WBC; PLATELET COUNT,PLT 174 K/uL (150-400); RED BLOOD CELL COUNT 4.38 M/uL (4.50-5.90); WHITE BLOOD CELL COUNT,WBC 15.95 K/uL (4.0-11.0)
[2023-02-21 06:57] LABS: A/G RATIO 0.7 (0.9-1.6); ALBUMIN 3.5 g/dL (3.4-5.0); BILIRUBIN TOTAL 0.7 mg/dL (0.2-1.0); CALCIUM 9.7 mg/dL (8.5-10.1); CREATININE 2.3 mg/dL (0.8-1.3); EST CRCL DRUG DOSING (CG) 34.62 mL/min; MAGNESIUM 2.7 mg/dL (1.8-2.4); POTASSIUM,K 5.1 mmol/L (3.5-5.1); PROTEIN TOTAL,TP 8.4 g/dL (6.4-8.2)
[2023-02-21 07:00] LABS: PCO2 VENOUS 40 mmHG (41-51); PH,VENOUS < 6.82 (7.31-7.41); PO2 VENOUS 65 mmHG
[2023-02-21 07:03] LABS: D-DIMER QUANTITATIVE 34.05 mg/L FEU (0.00-0.50); INR 0.99 (0.86-1.11); PTT,PARTIAL THROMBOPLSTIN TIME 46.5 SEC (23.9-30.7)
[2023-02-21 07:04] LABS: CARBON DIOXIDE,CO2 6.1 mmol/L (21.0-32.0)
[2023-02-21] MEDS ORDERED: Sodium Chloride 0.9% 1,000 ML IV ONE ×2 (07:12→07:14)
[2023-02-21] MEDS ORDERED: Piperacillin/Tazobactam 4.5 GM in Sodium Chloride 0.9% 100 ML IV ONE (07:12)
[2023-02-21 07:19] LABS: BAND ABSOLUTE MAN 1.8; BAND PERCENT MAN 11 %; LYMPHOCYTES ABSOLUTE MAN 2.9 (0.6-2.4); LYMPHOCYTES PERCENT MAN 18 % (16.0-40.0); MONOCYTES ABSOLUTE MAN 0.6 (0.0-0.8); MONOCYTES PERCENT MAN 4 % (0.0-15.0); MYELOCYTE ABSOLUTE MAN 0.2; MYELOCYTE PERCENT MAN 1 %; SEG NEUTROPHILS ABSOLUTE MAN 10.5 (1.4-5.7); SEG NEUTROPHILS PERCENT MAN 66 % (48.0-80.0)
[2023-02-21] MEDS ORDERED: Sodium Bicarbonate 8.4% 50 MEQ/50 ML Syringe IVPUSH ONE (07:20)
[2023-02-21] MEDS ORDERED: Iopamidol 755 Mg/ML 100 ML Bottle IVPUSH ONE (07:55)
[2023-02-21 07:56] LABS: LACTIC ACID 22.6 mmol/L (0.4-2.0)
[2023-02-21] MEDS ORDERED: 50% Dextrose in Water 50 ML Syringe IVPUSH ONE (08:17)
[2023-02-21] MEDS ORDERED: Thiamine 100 MG in Sodium Chloride 0.9% 100 ML IV ONE (08:17)
[2023-02-21] MEDS ORDERED: Thiamine 200 MG/2 ML MDV IVPUSH ONE (08:23)
[2023-02-21 08:56] LABS: PCO2 VENOUS 43 mmHG (41-51); PH,VENOUS < 6.82 (7.31-7.41); PO2 VENOUS 45 mmHG
[2023-02-21] MEDS ORDERED: LORazepam 2 MG/ML SDV IVPUSH ONE (08:56)
[2023-02-21 08:58] LABS: APPEARANCE,URINE CLEAR; BILIRUBIN,URINE NEGATIVE (NEGATIVE); COLOR,URINE YELLOW; GLUCOSE,URINE NEGATIVE (NEGATIVE); KETONES,URINE 15 mg/dL (NEGATIVE); LEUKOCYTE ESTERASE,URINE NEGATIVE (NEGATIVE); NITRITE,URINE NEGATIVE (NEGATIVE); OCCULT BLOOD,URINE MODERATE (NEGATIVE); PH,URINE 5.5 (5.0-8.0); PROTEIN,URINE 100 mg/dL (NEGATIVE); UROBILINOGEN,URINE 0.2 EU/dL (<2.0)
[2023-02-21] MEDS ORDERED: Folic Acid 1 MG/0.2 ML UD Syringe IV SCH (09:00)
[2023-02-21 09:01] LABS: HEMOGLOBIN 12.5 g/dL (13.0-17.0); MEAN CORPUSCULAR HEMOGLOBIN 33.3 pg (27.0-32.0); MEAN CORPUSCULAR HGB CONC 30.5 g/dL (31.0-37.0); MEAN CORPUSCULAR VOLUME 109.3 fL (80.0-98.0); RED BLOOD CELL COUNT 3.75 M/uL (4.50-5.90); WHITE BLOOD CELL COUNT,WBC 18.59 K/uL (4.0-11.0)
[2023-02-21 09:02] LABS: PHOSPHORUS 14.9 mg/dL (2.6-4.7)
[2023-02-21 09:07] LABS: RBC,URINE 0-1 (0-2/HPF); WBC,URINE 0-3 (0-5/HPF)
[2023-02-21 09:08] LABS: BACTERIA,URINE 2+ (NEGATIVE); EPITHELIAL CELLS,URINE RARE (NONE-FEW); MUCUS,URINE LIGHT (NONE-MOD)
[2023-02-21 09:11] LABS: AMPHETAMINES SCREEN, URINE NEGATIVE (CUTOFF=500); BARBITURATE SCREEN,URINE NEGATIVE (CUTOFF=200); BENZODIAZEPINES SCREEN,URINE NEGATIVE (CUTOFF=150); BUPRENORPHINE SCREEN,URINE NEGATIVE (CUTOFF=10); METHADONE SCREEN, URINE NEGATIVE (CUTOFF=200); METHAMPHETAMINES SCREEN, URINE NEGATIVE (CUTOFF=500); OXYCODONE SCREEN,URINE NEGATIVE (CUT0FF=100); PCP SCREEN,URINE NEGATIVE (CUTOFF=25); PROPOXYPHENE SCREEN,URINE NEGATIVE (CUTOFF=300); THC SCREEN,URINE 20 NG/ML NEGATIVE (CUTOFF=50)
[2023-02-21 09:26] LABS: BAND ABSOLUTE MAN 2.2; BAND PERCENT MAN 12 %; PLATELET COUNT,PLT 183 K/uL (150-400); SEG NEUTROPHILS ABSOLUTE MAN 11.5 (1.4-5.7); SEG NEUTROPHILS PERCENT MAN 62 % (48.0-80.0)
[2023-02-21 09:27] LABS: BASOPHILS ABSOLUTE MAN 0.2 (0.0-0.1); BASOPHILS PERCENT MAN 1 % (0.0-1.5); LYMPHOCYTES ABSOLUTE MAN 3.5 (0.6-2.4); LYMPHOCYTES PERCENT MAN 19 % (16.0-40.0); MONOCYTES ABSOLUTE MAN 0.7 (0.0-0.8); MONOCYTES PERCENT MAN 4 % (0.0-15.0); MYELOCYTE ABSOLUTE MAN 0.4; MYELOCYTE PERCENT MAN 2 %
[2023-02-21] MEDS ORDERED: LORazepam 2 MG/ML SDV IVPUSH STA ×2 (09:27→10:06)
[2023-02-21] MEDS ORDERED: Sodium Bicarbonate 150 MEQ in Dextrose 5% in Water 1,000 ML IV ONE ×2 (09:30)
[2023-02-21 09:36] LABS: CALCIUM 7.9 mg/dL (8.5-10.1); CARBON DIOXIDE,CO2 7.2 mmol/L (21.0-32.0); EST CRCL DRUG DOSING (CG) 37.09 mL/min; POTASSIUM,K 4.8 mmol/L (3.5-5.1)
[2023-02-21 09:39] LABS: PHOSPHORUS 12.4 mg/dL (2.6-4.7)
[2023-02-21 09:56] LABS: ALBUMIN 2.6 g/dL (3.4-5.0); BILIRUBIN TOTAL 1.2 mg/dL (0.2-1.0); PROTEIN TOTAL,TP 6.2 g/dL (6.4-8.2)
== END 2023-02-21 12:43 | disposition other institution (70) ==
LOC: MW.ED 05:37
DX: E87.20 Acidosis, unspecified (principal); K75.9 Inflammatory liver disease, unspecified; N17.9 Acute kidney failure, unspecified; E16.2 Hypoglycemia, unspecified; J44.9 Chronic obstructive pulmonary disease, unspecified; Z79.51 Long term (current) use of inhaled steroids
CPT/HCPCS: 36415; 71045; 71275; 74177; 76705; 80048; 80053; 80179; 80305; 80307; 81001; 82009; 82040; 82247; 82803; 82947; 83605; 83690; 83735; 83880; 83930; 84075; 84100; 84155; 84450; 84460; 84484; 85025; 85379; 85610; 85730; 87040; 87077; 87154; 87186; 93005; 94640; 94660; J1650; J2060; J2270; J2405; J2543; J2930; J3010; J3411; J3490; J7030; J7060; Q9967; 93010; 96361; 96365; 96366; 96367; 96372; 96375; 96376; 99284; 99291; 99292; J7620-GY

== ENCOUNTER 2023-04-22 00:09 | Emergency (ER) | payer MEDICAID ==
[2023-04-22 01:14] LABS: LACTIC ACID 0.8 mmol/L (0.4-2.0)
[2023-04-22 01:16] LABS: BASOPHILS PERCENT AUTO 0.3 % (0.0-1.5); EOSINOPHILS ABSOLUTE AUTO 0.1 K/uL (0.0-0.7); EOSINOPHILS PERCENT AUTO 1.8 % (0.0-7.0); HEMATOCRIT 38.7 % (38.0-50.0); HEMOGLOBIN 13.1 g/dL (13.0-17.0); LYMPHOCYTES ABSOLUTE AUTO 3.1 K/uL (0.6-2.4); LYMPHOCYTES PERCENT AUTO 47.7 % (16.0-40.0); MEAN CORPUSCULAR HEMOGLOBIN 31.6 pg (27.0-32.0); MEAN CORPUSCULAR HGB CONC 33.9 g/dL (31.0-37.0); MEAN CORPUSCULAR VOLUME 93.3 fL (80.0-98.0); MONOCYTES ABSOLUTE AUTO 0.5 K/uL (0.0-0.8); MONOCYTES PERCENT AUTO 7.1 % (0.0-15.0); NEUTROPHILS ABSOLUTE AUTO 2.8 K/uL (1.4-5.7); NEUTROPHILS PERCENT AUTO 43.1 % (48.0-80.0); PLATELET COUNT,PLT 233 K/uL (150-400); RED BLOOD CELL COUNT 4.15 M/uL (4.50-5.90)
[2023-04-22] MEDS ORDERED: Lidocaine 4% 1 each Patch TOP PRN (01:20)
[2023-04-22] MEDS ORDERED: Acetaminophen 325 MG Tab PO ONE (01:20)
[2023-04-22 01:26] LABS: INR 0.98 (0.86-1.11)
[2023-04-22 01:34] LABS: ALBUMIN 4.2 g/dL (3.4-5.0); BILIRUBIN TOTAL 0.9 mg/dL (0.2-1.0); CALCIUM 9.4 mg/dL (8.5-10.1); CREATININE 1.3 mg/dL (0.8-1.3); EST CRCL DRUG DOSING (CG) 61.61 mL/min; POTASSIUM,K 4.5 mmol/L (3.5-5.1); PROTEIN TOTAL,TP 8.3 g/dL (6.4-8.2)
[2023-04-22 01:44] LABS: BASE EXCESS VENOUS 0.5 (-2.0-3.0); PH,VENOUS 7.42 (7.31-7.41)
[2023-04-22] MEDS ORDERED: Iopamidol 755 MG/ML 500 ML Multipack Bottle IVPUSH ONE (02:52)
[2023-04-22 03:59] VITALS: BP 110/87; PULSE 69
== END 2023-04-22 03:58 | disposition home or self-care (01) ==
LOC: MW.ED 00:09
DX: M25.512 Pain in left shoulder (principal); J44.9 Chronic obstructive pulmonary disease, unspecified; Z79.899 Other long term (current) drug therapy; Z20.822 Contact with and (suspected) exposure to COVID-19
CPT/HCPCS: 36415; 71045; 71275; 80053; 82803; 83605; 83690; 83880; 84484; 85025; 85610; 87040; 87635; 93005; 93971; 99284; A9270; Q9967; 93010; U0002